=== PATIENT | female | born 1990 | race Caucasian/White ===

== ENCOUNTER → 2016-05-09 | Outpatient (CLI) | payer MEDICAID ==
--- NOTE | 2016-05-09 09:49 | Diagnostic Imaging Report ---
PROCEDURE: US Gallbladder. TECHNIQUE: Multiple real-time grayscale images were obtained over the right upper quadrant in various projections. Indication: Right upper quadrant pain. Comparison: None. Discussion: Sonographic evaluation of the right upper quadrant was performed. The liver appears normal in echotexture and size. No hepatic mass identified. The gallbladder appears normal without evidence of cholelithiasis, wall thickening, or pericholecystic fluid. No evidence of biliary duct dilatation. The common bile duct is normal measuring 0.3 cm. The pancreas appears normal as visualized. The right kidney appears normal in echotexture and size without evidence of hydronephrosis or renal mass. The right kidney measures 10.6 cm. Incidental note of a benign anechoic cyst within the mid right kidney measuring 1.6 cm. There is no ascites or abnormal bowel loops identified. No sonographic Francisco sign was reported. Impression: 1. Incidental note of a benign-appearing 1.6 cm right renal cyst. No acute abnormality otherwise identified. Dictated by: Dictated on workstation # [id number]
== END ==
LOC: RAD 09:18
PROVIDERS: ATTEND Nurse Practitioner Family
DX: R10.84 Generalized abdominal pain (principal); R19.8 Other specified symptoms and signs involving the digestive system and abdomen
CPT/HCPCS: 76705

== ENCOUNTER 2016-09-30 14:04 | Emergency (ER) | payer MEDICAID ==
[~2016-09-30] VITALS: Ht 165.1 cm; Wt 56.7 kg
--- NOTE | 2016-09-30 15:14 | ED Integumentary General ---
General Chief Complaint: Allergic Reaction Stated Complaint: RASH ON R SIDE AND OVER ABD Nursing Triage Note: PT REPORTS GENERALIZED RASH SINCE YESTERDAY. Source: patient Exam Limitations: no limitations History of Present Illness Time seen by provider: 15:11 Initial Comments The patient's a 25-year-old white female who presents with a chief complaint of rash and diffuse itching. This began yesterday. She cannot pinpoint anything that she would have done differently or any different medications. She has taken 1 Benadryl 25 mg without particular improvement. She is here with her 7- month-old son who also seems to have a rash. She is concerned about the possibility of transmitted measles or chickenpox as her older son very recently had immunizations. Timing/Duration: yesterday, getting worse Location: generalized Possible Cause: no cause identified Modifying Factors: improves with antihistamine Associated Symptoms: denies symptoms Allergies and Home Medications Allergies Coded Allergies: No Known Drug Allergies (Unverified , 09/30/16) Constitutional: see HPI EENTM: no symptoms reported Cardiovascular: no symptoms reported Gastrointestinal: no symptoms reported Genitourinary: no symptoms reported Musculoskeletal: no symptoms reported Skin: see HPI, rash Psychiatric/Neurological: No Symptoms Reported Endocrine: No Symptoms Reported Past Dklhnui-Lnajbq-Kxqpls Hx Patient Social History Alcohol Use: Denies Use Recreational Drug Use: No Smoking Status: Current Everyday Smoker Type Used: Cigarettes 2nd Hand Smoke Exposure: No Recent Foreign Travel: No Contact w/Someone Who Travel: No Recent Infectious Disease Expo: No Recent Hopitalizations: No Seasonal Allergies Seasonal Allergies: No Surgeries Surgeries: Tubal Ligation Physical Exam Vital Signs Vital Sign - Last 12Hours 09/30/16 14:50 Temp 97.1 Pulse 79 Resp 16 B/P (MAP) 112/68 Pulse Ox 99 O2 Delivery Room Air Capillary Refill : Less Than 3 Seconds General Appearance: mild distress HEENT: normal ENT inspection Cardiovascular: normal peripheral pulses, regular rate, rhythm, no edema, no gallop, no JVD, no murmur Respiratory: chest non-tender, lungs clear, normal breath sounds, no respiratory distress, no accessory muscle use Comments A variable rashes noted. Both arms would appear to be sunburned although she has not been outside. She has an area of erythema along the left midaxillary line particularly from the lower ribs to the pelvic rim. There are multiple other macular eruptions as well. None appear raised. Progress/Results/Core Measures Results/Orders My Orders Orders - SALVATORE CARLOS MD Methylprednisolone Sod Succ (Solu-Medrol (09/30/16 15:45) Vital Signs/I&O Vital Sign - Last 12Hours 09/30/16 14:50 Temp 97.1 Pulse 79 Resp 16 B/P (MAP) 112/68 Pulse Ox 99 O2 Delivery Room Air Blood Pressure Mean: 83 Departure Impression Impression: Primary Impression: urticaria Disposition: HOME, SELF-CARE Condition: Stable/Unchanged Departure-Patient Inst. Referrals: VIVIANA PRATT DO (PCP) Primary Care Physician FANNIE DOMINGUEZ (Family) Primary Care Physician Patient Instructions: Skin Rash (DC) Add. Discharge Instructions: All discharge instructions reviewed with patient and/or family. Voiced understanding. Take prednisone as directed Use [id number] Benadryl 50 mg for severe itching and 25 for less severe every 4 hours as needed. Drowsiness is a side effect. Scripts Prednisone (Prednisone) 20 Mg Tab 20 MG PO DAILY, #5 TAB Prov: SALVATORE CARLOS MD 09/30/16 SALVATORE CARLOS MD Sep 30, 2016 15:14
[2016-09-30] MEDS ORDERED: PRD20T PO (15:41)
[2016-09-30 15:45] VITALS: BP 112/68
[2016-09-30] MEDS ORDERED: methylPREDNISolone 125 MG (Solu-MEDROL) VIAL IM ONE (15:45)
== END 2016-09-30 15:45 | disposition home or self-care (01) ==
LOC: EDUNIT# 14:04 → ER 14:05
DX: L50.9 Urticaria, unspecified (principal); F17.210 Nicotine dependence, cigarettes, uncomplicated
CPT/HCPCS: 96372; 99282

== ENCOUNTER 2016-10-08 00:01 | Emergency (ER) | payer MEDICAID ==
[~2016-10-08] VITALS: Ht 165.1 cm; Wt 58.1 kg
[~2016-10-08 00:01] MED LIST: PRD20T PO
[2016-10-08] MEDS ORDERED: HYDROcodone/APAP 7.5 MG/325 MG (LORTAB, LORCET PLUS) TABLET PO STA (02:14)
[2016-10-08] MEDS ORDERED: KETOROLAC 60 MG/2 ML VIAL IM STA (02:14)
--- NOTE | 2016-10-08 02:18 | ED Back Pain ---
General Chief Complaint: Back Problems Stated Complaint: BACK PAIN Nursing Triage Note: lower back pain onset around 2200 while sitting, c/o pain and tingling in legs Nursing Sepsis Screen: No Definite Risk Source of Information: Patient, Family Exam Limitations: No Limitations History of Present Illness Time Seen by Provider: 02:01 Initial Comments Here with complaint of bilateral lower back pain at the area of the SI joint. States that it radiates down into her legs. She complains of ankle and knee pain bilaterally as well. She has not taken anything for the pain. She denies recent injury. She denies bowel or bladder difficulties or incontinence. States this started when she was just sitting on the couch relaxin. Location: Lumbar Spine Timing/Duration: 4-6 Hours Severity: Moderate Pain/Injury Location: Back Radiation: Buttocks, Upper Legs Method of Injury: Unknown Modifying Factors: Improves With Immobilization, Worse With Movement Associated Symptoms: muscle spasms, numbness in legs/feet, No sensory/motor loss, lower back pain, No loss of bladder control, No loss of bowel control Allergies and Home Medications Allergies Coded Allergies: No Known Drug Allergies (Unverified , 09/30/16) Home Medications Prednisone 20 Mg Tab, 20 MG PO DAILY, #5 Prescribed by: SALVATORE CARLOS on 09/30/16 8091 Constitutional: see HPI, No chills, No fever Respiratory: no symptoms reported Cardiovascular: no symptoms reported Gastrointestinal: no symptoms reported Genitourinary: no symptoms reported Musculoskeletal: back pain, joint pain, muscle pain Skin: no symptoms reported Psychiatric/Neurological: Numbness Past Woecaic-Iyzmpr-Hkyeeq Hx Patient Social History Alcohol Use: Denies Use Recreational Drug Use: No Smoking Status: Current Everyday Smoker Type Used: Cigarettes 2nd Hand Smoke Exposure: No Recent Foreign Travel: No Contact w/Someone Who Travel: No Recent Infectious Disease Expo: No Recent Hopitalizations: No Seasonal Allergies Seasonal Allergies: No Surgeries HX Surgeries: Yes Surgeries: Abdominal, Tubal Ligation Respiratory Hx Respiratory Disorders: No Cardiovascular Hx Cardiac Disorders: No Neurological Hx Neurological Disorders: No Reproductive System : No (tubal ligation 01/2016) FRAUD EXAMINER History: Tubal Ligation Genitourinary Hx Genitourinary Disorders: No Gastrointestinal Hx Gastrointestinal Disorders: Yes Gastrointestinal Disorders: Irritable Bowel Musculoskeletal Hx Musculoskeletal Disorders: No Endocrine Hx Endocrine Disorders: No Psychosocial Hx Psychiatric Problems: Yes Behavioral Health Disorders: Anxiety, Depression Blood Transfusions Adverse Reaction to a Blood Tr: No Reviewed Nursing Assessment Reviewed/Agree w Nursing PMH: Yes Family Medical History Significant Family History: No Pertinent Family Hx Physical Exam Vital Signs Vital Sign - Last 12Hours 10/08/16 01:16 Temp 98.9 Pulse 88 Resp 18 B/P (MAP) 116/76 Pulse Ox 97 O2 Delivery Room Air Capillary Refill : Less Than 3 Seconds General Appearance: WD/WN, Mild Distress Neck: Non Tender, Supple Cardiovascular: Regular Rate, Rhythm, No Murmur Respiratory: Lungs Clear, Normal Breath Sounds Peripheral Pulses: 2+ Dorsalis Pedis (R), 2+ Left Dors-Pedis (L), 2+ Radial Pulses (R), 2+ Radial Pulses (L) Gastrointestinal: Non Tender, Soft Back: No CVA Tenderness, No Vertebral Tenderness, Other (tenderness at the SI joint bilaterally and to the low back paraspinous muscles.) Extremity: No Pedal Edema, Other (tenderness at the ankles and knees bilaterally without swelling or other abnormality noted.) Neurologic/Psychiatric: Alert, Oriented x3 Skin: Normal Color, Warm/Dry Progress/Results/Core Measures Results/Orders Lab Results Laboratory Tests Test 10/08/16 04:15 Range/Units My Orders Orders - VANESA NICKERSON MD Hydrocodone/Apap 7.5/325 Tab (Lortab 7. (10/08/16 02:14) Ketorolac Injection (Toradol Injection) (10/08/16 02:14) Urine Bedside (10/08/16 02:14) Ua Culture If Indicated (10/08/16 02:14) Ct Lumbar Spine Wo (10/08/16 02:14) Vital Signs/I&O Vital Sign - Last 12Hours 10/08/16 01:16 Temp 98.9 Pulse 88 Resp 18 B/P (MAP) 116/76 Pulse Ox 97 O2 Delivery Room Air Blood Pressure Mean: 89 Progress Note : Progress Note Seen and evaluated. Toradol 60 mg IM, hydrocodone 7.[address] lumbar spine ordered. UA and UCG ordered. Monitor patient. 0440: Improved somewhat. UA pending. CT does not show any significant findings. Discharged home with return precautions. Patient verbalize understanding instructions and agreement with plan. Diagnostic Imaging Diagonstic Imaging: CT Plain Films/CT/US/NM/MRI: other (lumbar spine) Comments No acute fractures. No lytic or blastic abnormalities. Neural foramina Patent. No CT evidence of significant degenerative changes. Departure Impression Impression: Primary Impression: Lumbar radiculopathy Disposition: HOME, SELF-CARE Condition: Stable Departure-Patient Inst. Decision time for Depature: 04:45 Referrals: [facility] (PCP) Primary Care Physician Patient Instructions: Low Back Pain (DC), Radiculopathy (DC) Add. Discharge Instructions: All discharge instructions reviewed with patient and/or family. Voiced understanding. Take medications as directed. Follow-up with your Dr. in a few days for recheck. Discussed with your doctor about further evaluation including MRI as indicated. Return for worse pain, fever, vomiting, weakness, breathing problems or other concerns as needed. Scripts Prednisone (Prednisone) 20 Mg Tab 40 MG PO DAILY, #8 TAB 0 Refills Prov: VANESA NICKERSON MD 10/08/16 Hydrocodone/Acetaminophen (Hydrocodon -Acetaminophen 5-325) 1 Each Tablet 1-2 EACH PO Q6H Y for PAIN-MODERATE, #10 TAB 0 Refills Prov: VANESA NICKERSON MD 10/08/16 VANESA NICKERSON MD Oct 08, 2016 02:18
[2016-10-08 04:32] LABS: BILIRUBIN,URINE NEGATIVE (NEGATIVE); KETONES,URINE NEGATIVE (NEGATIVE); LEUKOCYTE ESTERASE ,URINE NEGATIVE (NEGATIVE); NITRITE,URINE NEGATIVE (NEGATIVE); PH,URINE 7 (5-9); PROTEIN,URINE NEGATIVE (NEGATIVE); UROBILINOGEN,URINE 1 MG/DL (NORMAL)
[2016-10-08] MEDS ORDERED: PRD20T PO (04:49)
[2016-10-08] MEDS ORDERED: HYDR-3812 PO (04:49)
[2016-10-08] MEDS ORDERED: predniSONE 20 MG TAB PO ONE (05:00)
[2016-10-08 05:06] VITALS: BP 122/76
--- NOTE | 2016-10-08 08:51 | Diagnostic Imaging Report ---
PROCEDURE: CT lumbar spine without contrast. TECHNIQUE: Multiple contiguous axial images were obtained through the lumbar spine without the use of intravenous contrast. Sagittal and coronal reformations were then performed. INDICATION: Low back pain. FINDINGS: The alignment of the lumbar spine is normal. The vertebral body heights are well-maintained. There is no spondylolysis or spondylolisthesis. No fractures are identified. There are no lytic or sclerotic lesions. There is no bony encroachment upon the spinal canal or neural foramina. Soft tissues are unremarkable. There is a 2.6 cm cyst in the right hemipelvis likely of ovarian origin. IMPRESSION: Unremarkable CT lumbar spine Cyst in the right adnexa likely of ovarian origin. This could be better evaluated with pelvic ultrasound if clinically warranted. Dictated by: Dictated on workstation # [id number]
== END 2016-10-08 05:06 | disposition home or self-care (01) ==
LOC: ER 00:01 → EDUNIT# 00:01 → ER 04:57
DX: M54.16 Radiculopathy, lumbar region (principal); Z98.51 Tubal ligation status
CPT/HCPCS: 72131; 81000; 84703; 99282

== ENCOUNTER → 2016-12-07 | Outpatient (CLI) | payer MEDICAID ==
[~2016-12-07] MED LIST changes: +HYDR-3812 PO
--- NOTE | 2016-12-07 13:51 | Diagnostic Imaging Report ---
PROCEDURE: MRI lumbar spine. TECHNIQUE: Multiplanar, multisequence MRI of the lumbar spine was performed without contrast. INDICATION: Back pain and radiculopathy. Twisting accident while cheerleading from 2008. FINDINGS: There is satisfactory alignment of the lumbar spine. The vertebral body heights are preserved. The disc heights are also preserved with normal disc signal. The bone marrow signal overall appears unremarkable. The patient has a relatively wide AP dimension of the spinal canal. No canal stenosis at any level. The cauda equina and conus medullaris appear grossly unremarkable. T12-L1: There is no disc herniation. No spinal canal or foraminal stenosis. L1-L2: There is a no disc herniation. No spinal canal or foraminal stenosis. L2-L3: There is no disc herniation. No spinal canal or foraminal stenosis. L3-L4: There is no disc herniation. There is mild facet hypertrophy. No central canal or lateral recess stenosis. No foraminal narrowing. L4-L5: There is no disc herniation. There is slight facet and ligamentous hypertrophy. No central canal or lateral recess stenosis. L5-S1: No disc herniation, no spinal canal or foraminal stenosis. IMPRESSION: There is minimal facet hypertrophy in the lower lumbar spine. No disc herniation at any level. No spinal canal or foraminal stenosis at any level. Dictated by: Dictated on workstation # [id number]
--- NOTE | 2016-12-07 19:53 | Diagnostic Imaging Report ---
EXAMINATION: Transabdominal and transvaginal pelvic ultrasound. INDICATION: Pelvic pain. FINDINGS: The uterus is 6.5 x 5.9 x 3.9 cm. The endometrium is 1 cm in thickness. There is retroflexion of the uterus. The myometrium is fairly homogeneous with no focal lesion. The right ovary is 4.7 x 3.2 x 3.4 cm. The left ovary is 3.8 x 2.9 x 2.9 cm. In the right ovary there is a simple appearing cyst, measuring 3 cm with normal vascularity in the surrounding ovarian tissue suggested and arterial waveforms seen. The left ovary demonstrates a thickened wall centrally cystic lesion measuring 2.3 cm in size with ring of fire sign suggestive of a corpus luteum cyst. Minimal amount of free fluid is seen in the pelvis. IMPRESSION: There is a 3 cm simple appearing cyst in the right ovary and a 2.3 cm lesion in the left ovary with appearance suggestive of a corpus luteum cyst. Dictated by: Dictated on workstation # [id number]
== END ==
LOC: RAD 11:25
PROVIDERS: ATTEND Nurse Practitioner Family
DX: M54.5 Low back pain (principal); N83.201 Unspecified ovarian cyst, right side; N83.202 Unspecified ovarian cyst, left side
CPT/HCPCS: 72148; 76830; 76856